=== PATIENT | female | born 1975 | race Two or more races ===

== ENCOUNTER 2024-08-24 09:09 | Emergency (ER) | payer MEDICAID, SELFPAY ==
[2024-08-24 09:45] VITALS: BP 108/74; PULSE 101; RESP 16; TEMP 37.6; O2SAT 96; BMI 29.4
--- NOTE | 2024-08-24 10:14 | EDNOTE_ITS ---
ED Skin Abcess FB-RME/HPI General Chief complaint: Skin/Abscess/Foreign Body Stated complaint: PAIN RASH RIGHT ARM X 7 DAYS Time Seen by Provider: 08/24/24 09:37 Source: patient Arrival date/time: 08/24/24 09:09 This is a 49-year-old female who presents to the emergency department with c omplaints of painful rash noted to her right forearm for approximately 7 days. Patient reports she has not followed up with her PCP regarding this rash. Patient requesting pain medication she states she googled her symptoms and appears to be a shingles rash. Patient denies fever or any other concerns. Mode of arrival: ambulatory Related Data Previous Rx's ?Medication ?Instructions ?Recorded ibuprofen 600 mg tablet 600 mg PO Q8HR PRN PAIN #60 tabs 01/28/14 hydrocodone 5 mg-acetaminophen 325 1 tab PO TID #20 ta bs 04/15/22 mg tablet cephalexin 500 mg capsule 500 mg PO QID #28 caps 04/24 gabapentin 300 mg capsule 300 mg PO Q8H #30 caps 08/24 ibuprofen 600 mg tablet 600 mg PO Q8H PRN fever or p ain 08/24/24 #30 tabs Allergies Allergy/AdvReac Type Severity Reaction Status Date / Time No Known Allergies Allergy Verified 08/24/24 09:12 Review of Systems Review of Systems Systems Reviewed: All systems reviewed, normal except as documented Narrative Review of Systems: Gen: No fever, no chills, no weight loss EYES: No discharge, no visual changes, no pain HEENT: No ear pain, no congestion, no sore throat PULM: No shortness of breath, no cough, no congestion CV: No chest pain, no dyspnea on exertion, no palpitations GI: No nausea, no vomiting, no diarrhea, no pain, no constipation : No frequency, no urgency,? no dysuria Musc/skel: No joint pain, no back pain Skin: Positive painful rash Psyc: No hallucinations, no depression Heme/Lymph: No easy bleeding or bruising tendencies Neuro: No weakness, no headache ED Exam Narrative Physical exam: General: Sittiing in Exam table in no acute distress, answering questions appropriately HENT: normocephalic, atraumatic, EOMI, PERRLA, moist mucous membranes Chest: chest wall is nontender Cardiac: regular rate and rhythm, normal S1 and S2, no murmurs, rubs, or gallops, capillary refill ?2 seconds Pulmonary: clear to auscultation bilaterally, no wheezing, crackles, or rhonchi Abdominal: active bowel sounds, soft, nontender, nondistended Neuro: A&OX3, CN II-XII intact, sensation grossly intact bilaterally in UE and LE. Skin: Right medial forearm positive blisterlike cluster like rash Ext: no lower extremity edema Course Quality Measures none Orders Category Date Time Status Ketorolac Inj [Toradol Inj] Med 08/24/24 10:09 Discontinued 30 mg IM X1 ONE Vital Signs Vital signs: Vital Signs Temperature 99.7 F 08/24/24 09:45 Pulse Rate 101 H 08/24/24 09:45 Respiratory Rate 16 08/24/24 09:45 Blood Pressure 108/74 08/24/24 09:45 Pulse Oximetry (%) 96 08/24/24 09:45 Oxygen Delivery Method Room Air 08/24/24 09:45 Skin / Abscess / Foreign Body MDM Narrative MDM Narrative:: Patient is a 49-year-old female who presents with a shingles rash to her right forearm. Patient does states her rash has been there for over 7 days here for pain medication. I did prescribe her pain medication and ointment for the rash. Advised to follow-up with her PCP. Strict ER precautions given Patient data External records reviewed:: [facility] previous records Clinical information provided by:: patient Social determinants that could affect healthcare access:: none Patient has the following chronic illnesses:: none How is presenting disease/condition affected by chronic disease/condition?: no chronic disease Evaluation data The following diagnostics were reviewed and interpreted by me:: other (specify) Lab and/or radiology exams considered but not ordered:: none Interpretation Summary: none Medications / Prescriptions Medications or Prescriptions considered but not ordered:: none Medication administrations:: Medication Administration History Discontinued Medications Ketorolac Tromethamine (Ketorolac Inj 60 Mg/2 Ml Vial) 30 mg IM X1 ONE Stop: 08/24/24 10:10 Last Admin: 08/24/24 10:23 Dose: 30 mg Documented By: [facility] All medications administered and effective Consultations Consultation(s) initiated? (list below): No Diagnosis Skin/Abscess Differential Diagnosis: viral exanthem, urticaria, cellulitis, eczema, insect bites and other Most likely diagnosis given after review of the tests above:: Shingles rash Admission Indicated Admission indicated?: not indicated Explain why admission is indicated or not indicated:: none Admission Request Was there a request for admission?: No Disposition Plan Disposition Plan: Discharge Discharge Attestation Discharge Attestation: The patient and all family members were given an opportunity to ask questions and understood the discharge instructions. Discharge instructions specifically effects, indications for sooner follow up or return to the emergency department, and the expected course of current diagnosis. Patient condition: Stable Discharge Plan Plan Patient Disposition: HOME (Self Care) Prescriptions/Referrals Prescriptions/Med Rec: New gabapentin 300 mg capsule 300 mg PO Q8H Qty: 30 0RF ibuprofen 600 mg tablet 600 mg PO Q8H PRN (Reason: fever or pain) Qty: 30 0RF No Action ibuprofen 600 MG tablet 600 mg PO Q8HR PRN (Reason: PAIN) Qty: 60 0RF hydrocodone-acetaminophen 5-325 mg tablet 1 tab PO TID MDD 3 Qty: 20 0RF cephalexin 500 mg capsule 500 mg PO QID Qty: 28 0RF Problem List Clinical Impression: Shingles rash Patient/Caregiver Discharge Instructions Discharge Activity: activity as tolerated Education Materials: ED Shingles (Herpes Zoster) Additional Instructions: You have been diagnosed with shingles (herpes zoster), a viral infection that causes a painful rash. It is caused by the reactivation of the varicella-zoster virus, the same virus responsible for chickenpox. prescribed a topical cream or medication for the rash, apply it as directed. And pain medication medication. Please follow-up with your primary doctor for further evaluation and possible shingles vaccination. Return to the emergency department this any worsening symptoms change in condition Print Language: Haitian Stand Alone Forms: Lea Award Info., Patient Portal Info Letter PA/TEJA Supervising Physician HILLARY/TEJA Supervising Physician: Dr. Adames
[2024-08-24] MEDS: KETOROLAC INJ 60 MG/2 ML VIAL 30 MG IM (10:23)
== END 2024-08-24 10:28 | disposition home or self-care (01) ==
LOC: SERX 10:27
PROVIDERS: Emergency Provider Emergency Medicine; PCP Family Medicine
DX: B02.9 Zoster without complications (principal)
CPT/HCPCS: 96372; 99283; J1885

== ENCOUNTER → 2025-01-22 | Outpatient (CLI) | payer MEDICAID, SELFPAY ==
--- NOTE | 2025-01-22 10:45 | XR_ITS ---
Examination: Screening digital mammography, bilateral Computer aided detection 3-D breast Tomosynthesis, bilateral Date and time of exam: January 22, 1025 1057 hours Indication: Screening Technique: Nonmagnified MLO, CC views of the breasts to been obtained, reconstructed from 3-D Tomosynthesis images. R2 computer aided detection program utilized for evaluation of suspicious masses and/or abnormal calcifications. 3-D Tomosynthesis images obtained. Findings: The breasts are heterogeneously dense, which may obscure small masses 4 mm circumscribed nodule 12:00 position left breast anterior depth Benign calcifications IMPRESSION: BI-RADS Category 0: Incomplete: Need additional imaging evaluation 4 mm circumscribed nodule 12:00 position left breast anterior depth, recommend follow-up spot tomographic views of this nodule as well as bilateral breast sonography to complete workup
== END | disposition home or self-care (01) ==
PROVIDERS: Referring Provider Nurse Practitioner Women's Health; Visit Provider Nurse Practitioner Women's Health
DX: Z12.39 Encounter for other screening for malignant neoplasm of breast (principal); R92.333 Mammographic heterogeneous density, bilateral breasts; R92.1 Mammographic calcification found on diagnostic imaging of breast; N63.25 Unspecified lump in the left breast, overlapping quadrants
CPT/HCPCS: 77063; 77067